=== PATIENT | male | born 1975 | race Caucasian/White ===

== ENCOUNTER → 2017-11-18 | Outpatient (CLI) | payer OTHER ==
--- NOTE | 2017-11-18 11:47 | DIAGNOSTIC IMAGING REPORT ---
ULTRASOUND LEFT UPPER QUADRANT ABDOMEN CLINICAL HISTORY: Left-sided abdominal pain. COMPARISON STUDY: No priors. TECHNIQUE: Real-time, grayscale, and color flow sonography of the left upper quadrant is performed. Images are reviewed in the transverse and longitudinal planes. FINDINGS: Spleen: The spleen is normal in size and homogeneous in echotexture, measuring 9.3 cm in length. No perisplenic fluid is identified. Left kidney: The left kidney is normal in size and without hydronephrosis. The left kidney measures 11.1 cm in length. No shadowing calculus is identified. Ascites: None. IMPRESSION: Unremarkable sonographic assessment of the left kidney and spleen. Electronically signed by: Grady Vásquez M.D. 11/18/2017 11:46 AM Dictated Date/Time: 11/18/2017 11:44 AM
== END ==
LOC: C.ULTR 10:46
PROVIDERS: ATTEND Family Medicine
DX: R10.84 Generalized abdominal pain (principal)